=== PATIENT | female | born 1980 | race Caucasian/White ===

== ENCOUNTER 2022-04-27 23:08 | Emergency (ER) | payer BC | END 2022-04-28 02:55 | disposition home or self-care (01) | LOC: JD.ED 23:08 | DX: R00.2 Palpitations (principal); R51.9 Headache, unspecified; F17.210 Nicotine dependence, cigarettes, uncomplicated; Z91.040 Latex allergy status; Z20.822 Contact with and (suspected) exposure to COVID-19 | CPT/HCPCS: 36415; 71045; 71045-26; 80053; 84484; 85025; 85379; 85610; 93005; 93010; 99284; 99285; U0002 ==

== ENCOUNTER 2022-09-09 23:22 | Emergency (ER) | payer BC | END 2022-09-10 03:13 | disposition home or self-care (01) | LOC: JD.ED 23:22 | DX: M54.42 Lumbago with sciatica, left side (principal); I10 Essential (primary) hypertension; F17.210 Nicotine dependence, cigarettes, uncomplicated; Z91.040 Latex allergy status; W01.0XXA Fall on same level from slipping, tripping and stumbling without subsequent striking against object, initial encounter | CPT/HCPCS: 72100; 72100-26; 73552-26-LT; 73552-LT; 73590-26-LT; 73590-LT; 99283 ==

== ENCOUNTER 2022-10-11 09:08 | Emergency (ER) | payer BC ==
[2022-10-11 12:06] LABS: CORONAVIRUS COVID-19 NAA NEGATIVE (NEGATIVE)
== END 2022-10-11 11:55 | disposition home or self-care (01) ==
LOC: JD.ED 09:08
DX: R07.89 Other chest pain (principal); J02.9 Acute pharyngitis, unspecified; I10 Essential (primary) hypertension; J45.909 Unspecified asthma, uncomplicated; Z91.040 Latex allergy status; Z79.899 Other long term (current) drug therapy; Z20.822 Contact with and (suspected) exposure to COVID-19
CPT/HCPCS: 0241U; 36415; 71045; 84484; 85025; 86140; 87651; 93005; 99285

== ENCOUNTER 2022-12-15 15:50 | Emergency (ER) | payer BC | END 2022-12-15 20:25 | disposition home or self-care (01) | LOC: JD.ED 15:50 | DX: R00.2 Palpitations (principal); I10 Essential (primary) hypertension; Z87.891 Personal history of nicotine dependence; Z91.040 Latex allergy status; Z88.1 Allergy status to other antibiotic agents; Z88.8 Allergy status to other drugs, medicaments and biological substances | CPT/HCPCS: 36415; 80053; 83735; 84443; 85025; 85379; 93005; 93010; 93225; 93226; 99284; 99285 ==

== ENCOUNTER 2024-10-12 08:45 | Emergency (ER) | payer SELFPAY ==
[2024-10-12] MEDS: Ketorolac 30 MG/ML SDV IM ONE (09:55)
== END 2024-10-12 09:55 | disposition home or self-care (01) ==
LOC: JD.ED 08:45 → SUPCPDRO 08:45 → JD.ED 09:55
DX: K02.9 Dental caries, unspecified (principal); R51.9 Headache, unspecified; I10 Essential (primary) hypertension; J45.909 Unspecified asthma, uncomplicated; Z90.49 Acquired absence of other specified parts of digestive tract; Z90.710 Acquired absence of both cervix and uterus; Z88.1 Allergy status to other antibiotic agents; Z88.8 Allergy status to other drugs, medicaments and biological substances; Z91.040 Latex allergy status; Z79.899 Other long term (current) drug therapy
CPT/HCPCS: 96372; 99283; J1885

== ENCOUNTER 2024-10-14 07:22 | Emergency (ER) | payer SELFPAY ==
[2024-10-14] MEDS ORDERED: Pantoprazole 40 MG in Sodium Chloride 0.9% 100 ML IV ONE (09:41)
[2024-10-14] MEDS ORDERED: Ondansetron 8 MG in Sodium Chloride 0.9% 50 ML IV ONE (09:41)
[2024-10-14 10:40] LABS: BASOPHILS PERCENT AUTO 0.3 % (0.0-1.0); EOSINOPHILS ABSOLUTE AUTO 0.1 K/mm3 (0.0-0.4); EOSINOPHILS PERCENT AUTO 0.7 % (0.0-6.0); HEMATOCRIT 47.5 % (37.0-47.0); HEMOGLOBIN 16.1 gm/dl (12.0-16.0); IMMATURE GRAN ABSOLUTE AUTO 0.03 K/mm3 (0.00-0.05); IMMATURE GRAN PERCENT AUTO 0.2 % (0.0-0.4); LYMPHOCYTES ABSOLUTE AUTO 2.7 K/mm3 (1.0-4.8); LYMPHOCYTES PERCENT AUTO 22.3 % (24.0-44.0); MEAN CORPUSCULAR HEMOGLOBIN 32.7 pg (28.0-32.0); MEAN CORPUSCULAR HGB CONC 33.9 g/dl (32.0-36.0); MEAN CORPUSCULAR VOLUME 96.3 fl (83.0-99.0); MEAN PLATELET VOLUME 8.9 fl (9.4-12.3); MONOCYTES ABSOLUTE AUTO 0.7 K/mm3 (0.0-0.8); MONOCYTES PERCENT AUTO 5.9 % (0.0-8.0); NEUTROPHILS ABSOLUTE AUTO 8.7 K/mm3 (1.8-7.7); NEUTROPHILS PERCENT AUTO 70.6 % (41.0-71.0); PLATELET COUNT,PLT 349 K/mm3 (150-400); RED BLOOD CELL COUNT 4.93 M/mm3 (4.10-5.30); WHITE BLOOD CELL COUNT,WBC 12.31 K/mm3 (3.9-11.3)
[2024-10-14] MEDS: Ondansetron 8 MG in Sodium Chloride 0.9% 50 ML IV ONE (10:45)
[2024-10-14] MEDS: Sodium Chloride 0.9% 1,000 ML IV STA (10:45)
[2024-10-14] MEDS: Sodium Chloride 0.9% 10 ML Syringe FLUSH PRN (10:45)
[2024-10-14] MEDS: Pantoprazole 40 MG Vial IVPUSH ONE (10:45)
[2024-10-14 10:58] LABS: A/G RATIO 0.9 (1-2); ALBUMIN 3.9 g/dl (3.4-5.0); ANION GAP 10.4 (5-15); BILIRUBIN TOTAL 0.6 mg/dL (0.2-1.0); CALCIUM 9.3 mg/dL (8.5-10.1); EST CRCL DRUG DOSING (CG) 76.59 mL/min; MAGNESIUM 2.2 mg/dL (1.8-2.4); PROTEIN TOTAL,TP 8.1 g/dl (6.4-8.2)
[2024-10-14 11:00] LABS: POTASSIUM,K 4.4 mEq/L (3.5-5.1)
[2024-10-14 12:35] LABS: BILIRUBIN,URINE NEGATIVE (Negative); COLOR,URINE YELLOW (Yellow); GLUCOSE,URINE NEGATIVE (Negative); KETONES,URINE NEGATIVE (Negative); LEUKOCYTE ESTERASE,URINE 2+ (Negative); NITRITE,URINE NEGATIVE (Negative); OCCULT BLOOD,URINE NEGATIVE (Negative); PROTEIN,URINE NEGATIVE (Negative); UROBILINOGEN,URINE 0.2 (0.2-1.0)
[2024-10-14 12:36] LABS: APPEARANCE,URINE CLOUDY (Clear)
[2024-10-14 12:41] LABS: BARBITURATE SCREEN,URINE NEGATIVE (CUTOFF=200); BENZODIAZEPINES SCREEN,URINE NEGATIVE (CUTOFF=150); BUPRENORPHINE SCREEN,URINE NEGATIVE (CUTOFF=10); METHADONE SCREEN, URINE NEGATIVE (CUTOFF=200); METHAMPHETAMINES SCREEN, URINE NEGATIVE (CUTOFF=500); OXYCODONE SCREEN,URINE NEGATIVE (CUT0FF=100); THC SCREEN,URINE 20 NG/ML NEGATIVE (CUTOFF=50)
[2024-10-14 12:43] LABS: AMPHETAMINES SCREEN, URINE NEGATIVE (CUTOFF=500)
[2024-10-14 12:46] LABS: BACTERIA,URINE MANY /hpf (FEW); MUCUS,URINE FEW /hpf (FEW); RBC,URINE 0-5 /hpf (0-5); WBC,URINE 30-40 /hpf (0-5)
== END 2024-10-14 13:43 | disposition home or self-care (01) ==
LOC: JD.ED 07:22
DX: K29.70 Gastritis, unspecified, without bleeding (principal); T39.395A Adverse effect of other nonsteroidal anti-inflammatory drugs [NSAID], initial encounter; I10 Essential (primary) hypertension; J45.909 Unspecified asthma, uncomplicated; Z90.710 Acquired absence of both cervix and uterus; Z79.899 Other long term (current) drug therapy; Z88.8 Allergy status to other drugs, medicaments and biological substances; Z88.1 Allergy status to other antibiotic agents; Z91.040 Latex allergy status
CPT/HCPCS: 36415; 80053; 80306; 81001; 83690; 83735; 85025; 87086; 96361; 96365; 96376; 99284; J2405; J2470; J3490; J7030; 87088; 87186

== ENCOUNTER 2025-05-31 11:28 | Emergency (ER) | payer OTHER ==
[2025-05-31] MEDS: Ketorolac 60 MG/2 ML SDV IM ONE (13:24)
[2025-05-31] MEDS: Orphenadrine 100 MG Tab.ER PO STA (13:26)
== END 2025-05-31 14:40 | disposition home or self-care (01) ==
LOC: JD.ED 11:28
DX: S86.912A Strain of unspecified muscle(s) and tendon(s) at lower leg level, left leg, initial encounter (principal); I10 Essential (primary) hypertension; Z79.899 Other long term (current) drug therapy; Z91.040 Latex allergy status; Z90.710 Acquired absence of both cervix and uterus; Z88.8 Allergy status to other drugs, medicaments and biological substances; Z90.49 Acquired absence of other specified parts of digestive tract; X58.XXXA Exposure to other specified factors, initial encounter
CPT/HCPCS: 93971-26-LT; 93971-LT; 96372; 99283; A9270-GY; J1885

== ENCOUNTER 2025-08-19 22:06 | Emergency (ER) | payer OTHER, MEDICAID ==
[2025-08-19] MEDS: Ketorolac 60 MG/2 ML SDV IM ONE (23:22)
== END 2025-08-19 23:30 | disposition home or self-care (01) ==
LOC: JD.ED 22:06
DX: M65.4 Radial styloid tenosynovitis [de Quervain] (principal); I10 Essential (primary) hypertension; J45.909 Unspecified asthma, uncomplicated; Z88.8 Allergy status to other drugs, medicaments and biological substances; Z91.040 Latex allergy status; Z79.899 Other long term (current) drug therapy; Z90.49 Acquired absence of other specified parts of digestive tract
CPT/HCPCS: 29125; 73110; 96372; 99283; J1885